=== PATIENT | male | born 1980 ===

== ENCOUNTER 2020-06-16 20:07 | Emergency (ER) | payer SELFPAY ==
[~2020-06-16] VITALS: Ht 180.3 cm; Wt 95.5 kg
[2020-06-16 20:08] VITALS: BP 129/70
== END 2020-06-16 21:00 | disposition left against medical advice (07) ==
LOC: EMS 20:07 → EEVIPCON 20:07 → EMS 21:00
DX: L02.414 Cutaneous abscess of left upper limb (principal); Z53.21 Procedure and treatment not carried out due to patient leaving prior to being seen by health care provider